=== PATIENT | female | born 1945 | race Caucasian/White ===

== ENCOUNTER 2021-10-11 06:30 | Day surgery (SDC) | payer MEDICARE ==
[~2021-10-11] VITALS: Ht 170.2 cm; Wt 74.0 kg
[2021-10-11] VITALS (12 sets, daily range): BP systolic 94–125; BP diastolic 43–57
[2021-10-11] MEDS ORDERED: diphenhydrAMINE 25mg capsule PO PRN (06:55)
[2021-10-11] MEDS ORDERED: normal saline 1,000 ML IV SCH (06:55)
[2021-10-11] MEDS ORDERED: METF-436 PO (07:18)
[2021-10-11] MEDS ORDERED: OMEP10CA5 PO (07:18)
[2021-10-11] MEDS ORDERED: CLON-368 PO (07:18)
[2021-10-11] MEDS ORDERED: OSC500T PO (07:18)
[2021-10-11] MEDS ORDERED: METO-411 PO (07:18)
[2021-10-11] MEDS ORDERED: LISI20TA28 PO (07:18)
[2021-10-11] MEDS ORDERED: AMLO5TAB16 PO (07:18)
[2021-10-11] MEDS ORDERED: ATOR10TA70 PO (07:18)
[2021-10-11] MEDS ORDERED: DENO60DI SUBCUT (07:18)
[2021-10-11] MEDS ORDERED: CHOL100025 PO (07:18)
[2021-10-11] MEDS ORDERED: METF-1203 PO (07:18)
[2021-10-11] MEDS ORDERED: MULT-1085 PO (07:18)
[2021-10-11] MEDS ORDERED: ASPI81TA52 PO (07:18)
[2021-10-11] MEDS ORDERED: ALBU18HF2 INH (07:18)
[2021-10-11 07:49] LABS: BASOPHILS # (AUTO) 0.1 X10'3 (0-0.2); BASOPHILS % (AUTO) 1.3 % (0-1); EOSINOPHILS # (AUTO) 0.1 X10'3 (0-0.9); EOSINOPHILS % (AUTO) 0.7 % (0-6); HEMATOCRIT 33.4 % (35.0-45.0); HEMOGLOBIN 11.1 g/dl (12.0-16.0); LYMPHOCYTES # (AUTO) 0.8 X10'3 (1.1-4.8); LYMPHOCYTES % (AUTO) 7.9 % (21-51); MEAN CORPUSCULAR HEMOGLOBIN 26.5 PG (27.0-31.0); MEAN CORPUSCULAR HGB CONC 33.1 g/dL (33.0-36.5); MEAN PLATELET VOLUME 7.9 FL (7.4-10.4); MONOCYTES # (AUTO) 0.6 X10'3 (0-0.9); MONOCYTES % (AUTO) 5.6 % (2-12); NEUTROPHILS % (AUTO) 84.5 % (42-75); PLATELET COUNT 354 X10'3 (140-440); RED BLOOD COUNT 4.17 X10'6 (4.20-5.60); RED CELL DISTRIBUTION WIDTH 16.4 % (11.5-14.5); WHITE BLOOD COUNT 10.6 X10'3 (4.5-11.0)
[2021-10-11 08:07] LABS: ALBUMIN 3.2 G/DL (3.4-5.0); ANION GAP 11 (8-16); BLOOD UREA NITROGEN 19 MG/DL (7-18); BUN/CREATININE RATIO 22.9 (6.6-38.0); CALCIUM 8.3 MG/DL (8.5-10.1); CHLORIDE 103 MMOL/L (99-107); CREATININE 0.83 MG/DL (0.40-0.90); GLUCOSE 102 MG/DL (70-104); POTASSIUM 4.5 MMOL/L (3.5-5.1); SODIUM 136 MMOL/L (135-145); TOTAL CARBON DIOXIDE 22.3 MMOL/L (24-32); eGFR 67 ML/MIN
[2021-10-11 08:18] LABS: MAGNESIUM 0.9 MG/DL (1.5-2.4)
[2021-10-11] MEDS ORDERED: magnesium 2GM in 50ml NS 50 ML IV ONE ×2 (08:30→14:40)
[2021-10-11] MEDS ORDERED: iohexol 350MG/ML 100ml bottle IV ONE ×2 (09:29→10:57)
[2021-10-11] MEDS ORDERED: midazolam 1 mg/ML 2ml injection ONE ×3 (09:29→10:23)
[2021-10-11] MEDS ORDERED: heparin 1,000unit/ml 10ml vial 10 ML ONE (09:29)
[2021-10-11] MEDS ORDERED: fentaNYL/PF 50MCG/1 ML 2ML syringe ONE (09:29)
[2021-10-11] MEDS ORDERED: LIDOcaine 1%/PF 5ML 10 MG/ML VIAL ONE (09:29)
[2021-10-11] MEDS ORDERED: ondansetron/PF 4mg/2ml inj IV PRN (12:25)
[2021-10-11] MEDS ORDERED: HYDROcodone/acetaminophen 5mg/325mg tablet PO PRN (12:25)
[2021-10-11] MEDS ORDERED: HYDROcodone/acetaminophen 10/325mg tab PO PRN (12:25)
[2021-10-11] MEDS ORDERED: OXAZEpam 15mg capsule PO PRN (12:25)
[2021-10-11] MEDS ORDERED: normal saline 1000ml 1,000 ML IV SCH (12:30)
== END 2021-10-11 16:30 | disposition home or self-care (01) ==
LOC: SSTAY O 06:30
PROVIDERS: ATTEND Internal Medicine Cardiovascular Disease
DX: I70.211 Atherosclerosis of native arteries of extremities with intermittent claudication, right leg (principal); E78.00 Pure hypercholesterolemia, unspecified; Z79.899 Other long term (current) drug therapy; Z98.890 Other specified postprocedural states
CPT/HCPCS: 36415; 37226; 80048; 82948; 83735; 85025; 85610; 93005; 99152; 99153; C1725; C1760; C1769; C1876; C1894; C2623; J1644; J2250; J3010; J3475; J3490; J7030; Q0163; Q9967; A6258

== ENCOUNTER 2023-01-02 08:56 | Day surgery (SDC) | payer MEDICARE ==
[~2023-01-02] VITALS: Ht 170.2 cm; Wt 76.9 kg
[2023-01-02] VITALS (14 sets, daily range): BP systolic 98–190; BP diastolic 43–102; PULSE 74–115; RESP 12–25; TEMP 97.4; O2SAT 96–99
[~2023-01-02 08:56] MED LIST: ALBU18HF2 INH; AMLO5TAB16 PO; ASPI81TA52 PO; ATOR10TA70 PO; CHOL100025 PO; CLON-368 PO; DENO60DI SUBCUT; LISI20TA28 PO; METF-1203 PO; METF-436 PO; METO-411 PO; MULT-1085 PO; OMEP10CA5 PO; OSC500T PO
[2023-01-02] MEDS ORDERED: normal saline 1000ml 1,000 ML IV SCH (09:20)
[2023-01-02] MEDS ORDERED: MIDAZolam 1mg/ml 10ml vial IV ONE (09:20)
[2023-01-02] MEDS ORDERED: fentaNYL/PF 50MCG/1 ML 2ML syringe IV ONE (09:20)
[2023-01-02] MEDS ORDERED: glycopyrrolate 0.2mg/ml inj IV ONE (09:25)
[2023-01-02 09:54] LABS: BASOPHILS # (AUTO) 0.1 X10'3 (0-0.2); BASOPHILS % (AUTO) 1.4 % (0-1); EOSINOPHILS # (AUTO) 0.1 X10'3 (0-0.9); EOSINOPHILS % (AUTO) 1.3 % (0-6); HEMATOCRIT 37.3 % (35.0-45.0); HEMOGLOBIN 12.3 g/dl (12.0-16.0); LYMPHOCYTES # (AUTO) 1.4 X10'3 (1.1-4.8); LYMPHOCYTES % (AUTO) 17.1 % (21-51); MEAN CORPUSCULAR HEMOGLOBIN 26.9 PG (27.0-31.0); MEAN CORPUSCULAR HGB CONC 32.9 g/dL (33.0-36.5); MEAN CORPUSCULAR VOLUME 81.7 FL (78-98); MEAN PLATELET VOLUME 7.6 FL (7.4-10.4); MONOCYTES # (AUTO) 0.5 X10'3 (0-0.9); MONOCYTES % (AUTO) 5.4 % (2-12); NEUTROPHILS # (AUTO) 6.3 X10'3 (1.8-7.7); NEUTROPHILS % (AUTO) 74.8 % (42-75); PLATELET COUNT 325 X10'3 (140-440); RED BLOOD COUNT 4.57 X10'6 (4.20-5.60); RED CELL DISTRIBUTION WIDTH 21.9 % (11.5-14.5); WHITE BLOOD COUNT 8.4 X10'3 (4.5-11.0)
[2023-01-02 10:00] LABS: ALBUMIN 3.9 G/DL (3.4-5.0); ANION GAP 9 (8-16); BLOOD UREA NITROGEN 22 MG/DL (7-18); BUN/CREATININE RATIO 20.4 (10.0-20.0); CALCIUM 9.8 MG/DL (8.5-10.1); CHLORIDE 100 MMOL/L (99-107); CREATININE 1.08 MG/DL (0.40-0.90); GLUCOSE 135 MG/DL (70-104); MAGNESIUM 1.5 MG/DL (1.5-2.4); POTASSIUM 4.5 MMOL/L (3.5-5.1); SODIUM 137 MMOL/L (135-145); TOTAL CARBON DIOXIDE 27.9 MMOL/L (24-32); eCRCL 44 ML/MIN; eGFR 49 ML/MIN
[2023-01-02 10:01] LABS: INR 0.9 INR; PROTHROMBIN TIME 10.2 SECONDS (9.0-12.0)
[2023-01-02] MEDS ORDERED: OMEP20CA16 PO (10:09)
[2023-01-02] MEDS ORDERED: FURO20TA4 PO (10:09)
[2023-01-02] MEDS ORDERED: METF750T46 PO (10:09)
[2023-01-02] MEDS ORDERED: CALC600T14 PO (10:09)
[2023-01-02] MEDS ORDERED: IBUP-24 PO (10:09)
[2023-01-02 10:21] LABS: PLATELET ESTIMATE NORMAL
[2023-01-02 10:22] LABS: ANISOCYTOSIS 3+; HYPOCHROMASIA 1+
[2023-01-02 10:23] LABS: BURR CELLS 1+; ELLIPTOCYTES 2+
== END 2023-01-02 13:55 | disposition home or self-care (01) ==
LOC: SSTAY O 08:56 → EDSTATUS 12:00 → SSTAY O 13:55
PROVIDERS: ATTEND Internal Medicine Cardiovascular Disease
DX: I34.0 Nonrheumatic mitral (valve) insufficiency (principal); I10 Essential (primary) hypertension; E78.5 Hyperlipidemia, unspecified; Z79.899 Other long term (current) drug therapy
CPT/HCPCS: 36415; 80048; 83735; 85025; 85610; 93312; 93325; J2250; J3010; J3490; J7030; 85008; A4620